=== PATIENT | male | born 1955 | race Caucasian/White ===

== ENCOUNTER 2016-07-24 12:19 | Day surgery (SDC) | payer OTHER ==
[~2016-07-24] VITALS: Ht 175.3 cm; Wt 110.6 kg
[~2016-07-24 12:19] MED LIST: AMLO5TAB4 PO; BENA40TA41 PO
[2016-07-24 15:02] VITALS: Ht 175.3 cm; Wt 110.6 kg
[2016-07-24 15:50] VITALS: BP 131/62; PULSE 84; RESP 12
[2016-07-24] MEDS ORDERED: PROPOFOL 40 ML ONE (16:17)
[2016-07-24] MEDS ORDERED: LIDOCAINE 2% (SDV) 5 ML INJ ONE (16:17)
[2016-07-24 17:15] VITALS: BP 121/78; PULSE 75; RESP 18
--- NOTE | 2016-07-24 18:31 | GILP ---
DATE OF PROCEDURE: 07/24/2016 NAME OF PROCEDURE: Colonoscopy. SURGEON: Danyel Beckford MD PREOPERATIVE DIAGNOSIS: Screening colonoscopy. POSTOPERATIVE DIAGNOSES: 1. Colonoscopy all the way to the cecum. 2. Internal hemorrhoids. 3. No colon neoplasm was identified. INDICATION FOR THE PROCEDURE: Mr. Helio Lowe is a 60-year-old male patient who was scheduled for ks reening colonoscopy. The procedure and possible complications were well explained to the patient, he understood and conse nted to the procedure. DESCRIPTION OF PROCEDURE: Under the influence of anesthesia, the colonoscope was carefully introduc ed in the rectum and under direct vision, it was advanced all the way to the cecum. FINDINGS: The patient had internal hemorrhoids. No colon neoplasm was identified. He tolerated the procedure very well and there was no complication from the procedure. At the end o f the procedure, he was awake with stable vital signs and he was discharged home to the care of his family. IMPRESSION: 1. Colonoscopy all the way to the cecum. 2. Internal hemorrhoids. 3. No colon neoplasm was identified. PLAN: Next screening colonoscopy in 10 years. Dictated By: DANYEL VALERO/BILLY Conf#: [id number] DID#: [id number] CC: DANYEL BECKFORD MD;*EndCC*
== END 2016-07-24 19:22 | disposition home or self-care (01) ==
LOC: GIL 12:19
PROVIDERS: ATTEND Internal Medicine Gastroenterology
DX: Z12.11 Encounter for screening for malignant neoplasm of colon (principal); K64.8 Other hemorrhoids; I10 Essential (primary) hypertension; E66.9 Obesity, unspecified; Z68.36 Body mass index [BMI] 36.0-36.9, adult
CPT/HCPCS: 45378; Z7610

== ENCOUNTER 2017-12-18 05:19 | Inpatient (IN) | END 2017-12-23 12:00 | disposition home or self-care (01) | DRG 235 ==